=== PATIENT | female | born 1960 | race Caucasian/White ===

== ENCOUNTER 2019-03-16 06:30 | Inpatient (IN) | payer BC ==
[2019-03-16] MEDS: TRANEXAMIC ACID 1GM/100ML(PMX) 100 ML IVPB (05:30)
[2019-03-16] MEDS ORDERED: PHENYLephrine (100 MCG/ML) 10ML SYG (07:00)
[2019-03-16] MEDS ORDERED: MIDAZOLAM 1 MG/ML 2 ML INJ (08:36)
[2019-03-16] MEDS ORDERED: PROPOFOL 20 ML ×2 (08:36→11:31)
[2019-03-16] MEDS ORDERED: ROCURONIUM 50 MG INJ (08:36)
[2019-03-16] MEDS ORDERED: FENTAnyl 50 MCG/ML VIAL (08:36)
[2019-03-16] MEDS: VANCOMYCIN 1 GM (PMX) 250 ML IVPB (08:49)
[2019-03-16] MEDS: DEXAMETHASONE 1 MG TAB PO (08:59)
[2019-03-16] MEDS ORDERED: hydrALAzine 20 MG INJ IV (09:00)
[2019-03-16] MEDS ORDERED: METOCLOPRAMIDE 10 MG INJ IV (09:00)
[2019-03-16] MEDS ORDERED: LABETALOL HCL 20MG INJ IV (09:00)
[2019-03-16] MEDS ORDERED: FENTAnyl 50 MCG/ML VIAL IV ×2 (09:00)
[2019-03-16] MEDS: GABAPENTIN 300 MG CAP PO (09:04)
[2019-03-16] MEDS ORDERED: FAMOTIDINE 20 MG INJ (11:01)
[2019-03-16] MEDS ORDERED: DEXAMETHASONE 4 MG/ML 5 ML INJ (11:01)
[2019-03-16] MEDS ORDERED: ONDANSETRON 4 MG INJ ×2 (11:01→11:58)
[2019-03-16] MEDS ORDERED: METOCLOPRAMIDE 10 MG INJ (11:01)
[2019-03-16] MEDS: BUPIVACAINE 0.5% (SDV) 30 ML, morphine SULFATE (PF) 8 MG, EPINEPHrine 0.3 MG, KETOROLAC... IRR (11:13)
[2019-03-16] MEDS: POLYMYXIN/BACITRACIN 1L IRRIG IRR (11:13)
[2019-03-16] MEDS: SOD CHLORIDE 0.9% 100 ML, TRANEXAMIC ACID 3,000 MG IRR (11:20)
[2019-03-16] MEDS ORDERED: KETOROLAC 30 MG INJ (11:31)
[2019-03-16] MEDS ORDERED: SUGAMMADEX SODIUM 200 MG/2 ML VIAL IV (11:31)
[2019-03-16] MEDS ORDERED: RIZATRIPTAN BENZOATE 10 MG PO (12:00)
[2019-03-16] MEDS ORDERED: HYDROmorphONE 1 MG/ML SYG IV (12:00)
[2019-03-16] MEDS ORDERED: NACL 0.9% 3 ML SYG IV (12:00)
[2019-03-16] MEDS ORDERED: DIPHENHYDRAMINE 50 MG INJ IV ×2 (12:00→12:30)
[2019-03-16] MEDS ORDERED: oxyCODONE 5 MG TAB PO (12:00)
[2019-03-16] MEDS ORDERED: MAGNESIUM HYDROXIDE 30ML CUP PO (12:00)
[2019-03-16] MEDS: FENTAnyl 50 MCG/ML VIAL IV ×2 (12:13→12:24)
[2019-03-16] MEDS: MEPERIDINE 25 MG INJ IV (12:13)
[2019-03-16] MEDS: ONDANSETRON 4 MG INJ IV ×3 (12:13→20:05)
[2019-03-16] MEDS: DIPHENHYDRAMINE 50 MG INJ IV (12:13)
[2019-03-16] MEDS ORDERED: MEPERIDINE 25 MG INJ IV (12:30)
[2019-03-16] MEDS ORDERED: LORAZEPAM 2 MG INJ IV (12:30)
[2019-03-16] MEDS: EPHEDrine 25 MG/5 ML SYG IV (12:39)
[2019-03-16] MEDS ORDERED: DEXTROSE 50% 50 ML SYRINGE IV ×4 (13:00→13:30)
[2019-03-16] MEDS ORDERED: GLUCAGON 1 MG INJ IM ×2 (13:00→13:30)
[2019-03-16] MEDS ORDERED: GLUCOSE GEL 15 GRAM TUBE PO ×4 (13:00→13:30)
[2019-03-16] MEDS ORDERED: GLUCOSE GEL 15 GRAM TUBE BUCCAL ×2 (13:00→13:30)
[2019-03-16] MEDS: ALBUTEROL HFA 8 GM INHALER INH ×3 (13:00→21:00)
[2019-03-16] MEDS: PREGABALIN 25 MG CAP PO (13:00)
[2019-03-16] MEDS: LACTATED RINGER'S 1,000 ML IV ×2 (13:06→21:34)
[2019-03-16] MEDS: DEXAMETHASONE 2 MG TAB PO ×2 (13:43→18:30)
[2019-03-16] MEDS: morphine 4 MG/ML VIAL IV ×2 (14:05→19:38)
[2019-03-16] MEDS: PREGABALIN 50 MG CAP PO ×2 (18:29→21:16)
[2019-03-16] MEDS: metFORMIN 500 MG TAB PO (18:30)
[2019-03-16] MEDS: VANCOMYCIN 500 MG (PMX) 100 ML IVPB (20:10)
[2019-03-16] MEDS: DESIPRAMINE 10 MG PO (21:00)
[2019-03-16] MEDS: SENNA/DOCUSATE NA (8.6MG/50MG) TAB PO (21:00)
[2019-03-16] MEDS ORDERED: ALPRAZOLAM 1 MG PO (21:00)
[2019-03-16] MEDS ORDERED: DESIPRAMINE 10 MG PO (21:00)
[2019-03-16] MEDS: SPIRONOLACTONE 50 MG TAB PO (21:16)
[2019-03-16] MEDS: ALPRAZOLAM 0.5 MG TAB PO (21:17)
[2019-03-16] MEDS: MONTELUKAST 10 MG TAB PO (21:17)
[2019-03-16] MEDS: GUAIFENESIN LA 600 MG TABSR PO (21:20)
[2019-03-16] MEDS: BENAZEPRIL 20 MG TAB PO (21:21)
[2019-03-17] MEDS: DEXAMETHASONE 2 MG TAB PO ×2 (00:10→06:18)
[2019-03-17] MEDS: ALBUTEROL HFA 8 GM INHALER INH ×6 (01:00→21:00)
[2019-03-17] MEDS: LEVOTHYROXINE 150 MCG TAB PO (06:18)
[2019-03-17] MEDS: LACTATED RINGER'S 1,000 ML IV ×2 (08:00→17:34)
[2019-03-17] MEDS: VANCOMYCIN 500 MG (PMX) 100 ML IVPB (08:34)
[2019-03-17] MEDS: SPIRONOLACTONE 50 MG TAB PO ×2 (08:34→21:09)
[2019-03-17] MEDS: metFORMIN 500 MG TAB PO ×2 (08:34→17:45)
[2019-03-17] MEDS: SENNA/DOCUSATE NA (8.6MG/50MG) TAB PO ×2 (08:35→21:00)
[2019-03-17] MEDS: GUAIFENESIN LA 600 MG TABSR PO ×2 (08:35→21:10)
[2019-03-17] MEDS: PREGABALIN 50 MG CAP PO ×4 (08:50→21:23)
[2019-03-17] MEDS: ASPIRIN (EC) 325 MG TAB PO ×2 (08:50→09:00)
[2019-03-17] MEDS: DULOXETINE 30 MG CAP DR PO (08:50)
[2019-03-17] MEDS: LORATADINE 10 MG TAB PO (08:50)
[2019-03-17] MEDS: DOXYCYCLINE 100 MG TAB PO (08:51)
[2019-03-17] MEDS: oxyCODONE 5 MG TAB PO ×3 (08:51→17:10)
[2019-03-17] MEDS: ALPRAZOLAM 0.5 MG TAB PO ×2 (08:51→21:23)
[2019-03-17] MEDS: APIXABAN 5 MG TABLET PO ×2 (08:53→21:22)
[2019-03-17] MEDS ORDERED: ALPRAZOLAM 1 MG TAB PO (09:30)
[2019-03-17] MEDS: ALPRAZOLAM 1 MG PO ×2 (11:27→17:44)
[2019-03-17 17:06] LABS: ADD MAN DIFF? NO
[2019-03-17 17:10] LABS: BASOPHILS % 0.2 % (0.0-2.0); EOSINOPHILS % 0.1 % (0.0-7.0); HEMATOCRIT 33.8 % (37.0-47.0); HEMOGLOBIN 10.7 g/dl (12.0-16.0); LYMPHOCYTES # 1.5 10^3/ul (0.8-2.9); LYMPHOCYTES % 11.6 % (15.0-51.0); MEAN CORPUSCULAR HEMOGLOBIN 27.8 pg (29.0-33.0); MEAN CORPUSCULAR HGB CONC 31.7 g/dl (32.0-37.0); MEAN CORPUSCULAR VOLUME 87.8 fl (82.0-101.0); MEAN PLATELET VOLUME 10.1 fl (7.4-10.4); MONOCYTE # 1.1 10^3/ul (0.3-0.9); MONOCYTES % 8.6 % (0.0-11.0); NEUTROPHIL # 9.9 10^3/ul (1.6-7.5); NEUTROPHILS % 79.1 % (39.0-77.0); PLATELET COUNT 362 10^3/UL (140-415); RED BLOOD COUNT 3.85 10^6/ul (4.20-5.40); RED CELL DISTRIBUTION WIDTH 14.7 % (11.5-14.5)
[2019-03-17 17:10] LABS: WHITE BLOOD COUNT 12.6 10^3/ul (4.8-10.8)
[2019-03-17] MEDS: MONTELUKAST 10 MG TAB PO (21:09)
[2019-03-17] MEDS: BENAZEPRIL 20 MG TAB PO (21:21)
[2019-03-17] MEDS: DESIPRAMINE 10 MG PO (21:34)
[2019-03-18] MEDS: ALBUTEROL HFA 8 GM INHALER INH ×6 (01:00→21:00)
[2019-03-18] MEDS: LEVOTHYROXINE 150 MCG TAB PO (06:21)
[2019-03-18] MEDS: ALPRAZOLAM 1 MG PO ×2 (06:21→17:11)
[2019-03-18] MEDS: oxyCODONE 5 MG TAB PO ×4 (06:37→19:54)
[2019-03-18] MEDS: ASPIRIN (EC) 325 MG TAB PO (08:18)
[2019-03-18] MEDS: SENNA/DOCUSATE NA (8.6MG/50MG) TAB PO ×2 (08:20→21:00)
[2019-03-18] MEDS: APIXABAN 5 MG TABLET PO ×2 (08:28→21:35)
[2019-03-18] MEDS: metFORMIN 500 MG TAB PO ×2 (08:28→18:15)
[2019-03-18] MEDS: PREGABALIN 50 MG CAP PO ×4 (08:28→21:28)
[2019-03-18] MEDS: DULOXETINE 30 MG CAP DR PO (08:28)
[2019-03-18] MEDS: SPIRONOLACTONE 50 MG TAB PO ×2 (08:28→21:26)
[2019-03-18] MEDS: LORATADINE 10 MG TAB PO (08:29)
[2019-03-18] MEDS: GUAIFENESIN LA 600 MG TABSR PO ×2 (08:29→21:30)
[2019-03-18] MEDS: DOXYCYCLINE 100 MG TAB PO (08:29)
[2019-03-18] MEDS: MAGNESIUM HYDROXIDE 30ML CUP PO (21:00)
[2019-03-18] MEDS: ALPRAZOLAM 0.5 MG TAB PO (21:27)
[2019-03-18] MEDS: MONTELUKAST 10 MG TAB PO (21:30)
[2019-03-18] MEDS: DESIPRAMINE 10 MG PO (21:32)
[2019-03-18] MEDS: BENAZEPRIL 20 MG TAB PO (21:36)
[2019-03-19] MEDS: ALBUTEROL HFA 8 GM INHALER INH ×4 (01:00→13:00)
[2019-03-19] MEDS: oxyCODONE 5 MG TAB PO (01:41)
[2019-03-19] MEDS: LEVOTHYROXINE 150 MCG TAB PO (05:52)
[2019-03-19] MEDS: ALPRAZOLAM 1 MG PO (05:52)
[2019-03-19 06:02] LABS: CREATININE 0.76 mg/dl (0.44-1.00)
[2019-03-19 06:02] LABS: BLOOD UREA NITROGEN 13 mg/dl (7-20)
[2019-03-19] MEDS: RIZATRIPTAN 10 MG PO (06:20)
[2019-03-19] MEDS: DOXYCYCLINE 100 MG TAB PO (08:57)
[2019-03-19] MEDS: DULOXETINE 30 MG CAP DR PO (08:58)
[2019-03-19] MEDS: SENNA/DOCUSATE NA (8.6MG/50MG) TAB PO (09:00)
[2019-03-19] MEDS: metFORMIN 500 MG TAB PO (09:01)
[2019-03-19] MEDS: APIXABAN 5 MG TABLET PO (09:08)
[2019-03-19] MEDS: SPIRONOLACTONE 50 MG TAB PO (09:11)
[2019-03-19] MEDS: LORATADINE 10 MG TAB PO (09:11)
[2019-03-19] MEDS: ASPIRIN (EC) 325 MG TAB PO (09:11)
[2019-03-19] MEDS: GUAIFENESIN LA 600 MG TABSR PO (09:12)
[2019-03-19] MEDS: PREGABALIN 50 MG CAP PO ×2 (09:12→13:36)
== END 2019-03-19 15:18 | disposition home or self-care (01) | DRG 501 ==
LOC: REC 06:30 → MS1 12:58
PROVIDERS: Orthopaedic Surgery
PROC: 0MTL0ZZ Resection of Right Hip Bursa and Ligament, Open Approach (ICD-10-PCS; principal; 2019-03-16 09:00)
PROC: 0LMJ0ZZ Reattachment of Right Hip Tendon, Open Approach (ICD-10-PCS; 2019-03-16 09:00)
DX: M70.61 Trochanteric bursitis, right hip (principal); D68.59 Other primary thrombophilia; S76.011A Strain of muscle, fascia and tendon of right hip, initial encounter; I10 Essential (primary) hypertension; E78.5 Hyperlipidemia, unspecified; J45.909 Unspecified asthma, uncomplicated
CPT/HCPCS: 82565; 84520; 85025; 86999; 97116; 97163; 97530